=== PATIENT | male | born 1970 | race Two or more races ===

== ENCOUNTER 2019-09-29 22:00 | Emergency (ER) | payer MEDICAID ==
[~2019-09-29] VITALS: Ht 177.8 cm; Wt 75.4 kg
[2019-09-30 00:27] LABS: BASOPHILS # (AUTO) 0.04 x10^3/uL (0-0.1); BASOPHILS % (AUTO) 1 % (0-1); EOSINOPHILS # (AUTO) 0.07 x10^3/uL (0-0.4); EOSINOPHILS % (AUTO) 1 % (1-7); LYMPHOCYTES # (AUTO) 1.54 x10^3/uL (1-3.4); LYMPHOCYTES % (AUTO) 19 % (22-44); MD NO; MEAN CORPUSCULAR HEMOGLOBIN 31.5 pg (27.5-34.5); MEAN CORPUSCULAR HGB CONC 33.2 g/dL (33.2-36.2); MEAN PLATELET VOLUME 8.5 fL (7.4-10.4); MONOCYTES # (AUTO) 0.78 x10^3/uL (0.2-0.8); MONOCYTES % (AUTO) 10 % (2-9); NEUTROPHILS % (AUTO) 69 % (42-75); PLATELET COUNT 199 x10^3/uL (130-400); RED BLOOD COUNT 5.32 x10^6/uL (4.38-5.82); RED CELL DISTRIBUTION WIDTH 13.9 % (9.4-14.8)
[2019-09-30 00:38] LABS: ALBUMIN 2.9 g/dL (3.4-5.0); ANION GAP 7 mmol/L (5-15); CALCIUM 8.5 mg/dL (8.5-10.1); CHLORIDE 110 mmol/L (98-107); CREATININE 0.64 mg/dL (0.7-1.3)
--- NOTE | 2019-09-30 00:57 | NUR ---
THIS IS A 49Y M THAT COMES IN WITH "LEFT LUNG PAIN" X1 WEEK. PT DENIES FEVER CHILLS. PT STATES "JUST HAVE LUNG PAIN." PT CONNECTED TO MONITORING. CALL LIGHT IN REACH
[2019-09-30] MEDS ORDERED: KETOROLAC 30 MG/1 ML ONE (01:00)
[2019-09-30] MEDS ORDERED: ACETAMINOPHEN 500 MG TABLET PO ONE (01:00)
[2019-09-30] MEDS ORDERED: KETOROLAC 30 MG/1 ML IM ONE (01:00)
[2019-09-30] MEDS ORDERED: ACETAMINOPHEN 500 MG TABLET ONE (01:00)
[2019-09-30 01:05] VITALS: BP 108/60
--- NOTE | 2019-09-30 01:07 | NUR ---
PT MEDICATED PER DEC. TOLERATED PO FLUIDS WELL.
== END 2019-09-30 02:09 | disposition home or self-care (01) ==
LOC: ED 09-30 01:48
DX: R07.89 Other chest pain (principal); F15.10 Other stimulant abuse, uncomplicated; F17.200 Nicotine dependence, unspecified, uncomplicated; J44.9 Chronic obstructive pulmonary disease, unspecified
CPT/HCPCS: 36415; 71046; 80048; 82040; 85025; 93005; 96372; 99284; J1885